=== PATIENT | female | born 1990 | race Caucasian/White ===

== ENCOUNTER → 2017-05-07 11:53 | Outpatient (CLI) | payer BC, SELFPAY ==
[2017-05-07 13:11] LABS: Vitamin B12 359 pg/mL (211-911)
[2017-05-07 13:13] LABS: BUN 8 mg/dL (7-18); EST Glomerular Filtration Rate 125 mL/min (>60); Est Glom Filt Rate - Afr Amer 151 mL/min (>60); Rheumatoid Factor < 10.0 IU/mL (<15); Thyroid Stim Hormone (TSH) 0.88 uIU/mL (0.358-3.74)
[2017-05-08 12:09] LABS: SJOGREN'S Anti-SS-A test < 0.2 AI (0.0-0.9); SJOGREN'S Anti-SS-B test < 0.2 AI (0.0-0.9)
[2017-05-08 12:50] LABS: ANTINUCLEAR ANTIBODIES DIRECT Negative (Negative)
[2017-05-08 16:11] LABS: Cytoplasmic Ab (C-ANCA) <1:20 titer (Neg:<1:20); PROEL- A/G Ratio 1.6 (0.7-1.7); PROEL- Albumin 4.4 g/dL (2.9-4.4); PROEL- Alpha-1 Globulin 0.2 g/dL (0.0-0.4); PROEL- Alpha-2 Globulin 0.7 g/dL (0.4-1.0); PROEL- Beta Globulin 0.8 g/dL (0.7-1.3); PROEL- Globulin, Total 2.7 g/dL (2.2-3.9); PROEL- TOTAL PROTEIN 7.1 g/dL (6.0-8.5); PROELU- Albumin, Urine 33.7 % (.); PROELU- Alpha-1-Globulin,Ur 10.7 % (.); PROELU- Alpha-2-Globulin,Ur 15.5 % (.); PROELU- Beta Globulin, Ur 25.2 % (.); PROELU- Gamma Globulin, Ur 14.9 % (.); Total Protein, Ur 5.4 mg/dL (Not Estab.)
[2017-05-09 07:17] LABS: Perinuclear Ab (P-ANCA) <1:20 titer (Neg:<1:20)
== END ==
PROVIDERS: Visit Provider Psychiatry & Neurology Neurology
DX: M79.604 Pain in right leg (principal); M62.81 Muscle weakness (generalized); R51 Headache; R20.0 Anesthesia of skin
CPT/HCPCS: 36415; 82565; 82607; 84165; 84166; 84443; 84520; 86038; 86235; 86256; 86335; 86431

== ENCOUNTER 2017-11-12 19:51 | Emergency (ER) | payer BC, SELFPAY ==
[2017-11-12 19:51] VITALS: BP 137/73; PULSE 75; RESP 16; TEMP 36.7; O2SAT 100; BMI 27.4
[2017-11-12 20:49] LABS: Bacteria 0 SEEN /hpf (None Seen); Color, Urine Yellow (Yellow); Glucose, Dipstick Normal (Normal); Ketone-Dipstick Negative (Negative); Leukocyte Esterase-Dipstick 25 /ul (Negative); Mucous, Urine 0 SEEN /hpf (<or=2+); Nitrite-Dipstick Negative (Negative); Occult Blood-Urine 250 /ul (Negative); Protein-Dipstick Negative (Negative); Squamous Epithelial Cells - UA 0 SEEN /hpf (5-10); Urine Bilirubin Dipstick Negative (Negative); Urine Clarity Clear (Clear); Urine Urobilinogen Normal (Normal)
[2017-11-12 20:56] LABS: Internal QC Validated? YES +Cl - CLEAR BKGD; Pregnancy, Urine Negative Negative; Red Blood Cells-Urine 0-5 SEEN /hpf (0-5); White Blood Cells 0-5 SEEN /hpf (0-5)
[2017-11-12 21:28] LABS: Anion Gap 4 (5-15); BUN 7 mg/dL (7-18); BUN/Creat Ratio 11.3 RATIO (10-20); Calcium,Total 8.8 mg/dL (8.5-10.1); Chloride 108 mmol/L (98-107); Creatinine, Serum 0.62 mg/dL (0.55-1.02); EST Glomerular Filtration Rate 121 mL/min (>60); Est Glom Filt Rate - Afr Amer 146 mL/min (>60); Estimated Creatinine Clearance 125.34 ml/min; Glucose 88 mg/dL (74-106); Potassium 3.8 mmol/L (3.5-5.1); Sodium Level 141 mmol/L (136-145)
--- NOTE | 2017-11-12 22:29 | ED.VISSUMM ---
- ER Visit Summary Date of Service: 11/12/17 Chief Complaint: Abdominal pain History of Present Illness: The patient is a [address] Tapia and Dr. Alcantara. She reports that she has left lower abdominal pain that began at noon today. Sick continuous waxing and waning pain. She describes it as a pressure that 7-10 severity. Is worsened by nothing relieved by nothing. She has had nausea without vomiting. Last bowel was yesterday. She has had no melena hematochezia. No dysuria or frequency. She reports that she has had similar pain in the past with an ectopic . States she has been approximately 8 times but is only had one child. She took a test today that was negative. Physical Examination: Vitals: Stable. Afebrile. General: Well-nourished and well-developed. Head: Normocephalic atraumatic. Neck: Supple, no lymphadenopathy. No JVD. Nontender. Cardiovascular: Regular rate and rhythm. No murmurs. Respiratory: No respiratory distress. Clear to auscultation bilaterally. Abdominal: Soft, mild tenderness palpation left lower quadrant and suprapubic regions, nondistended, normal bowel sounds. No guarding, rebound, or peritoneal signs. Back: Nontender. Extremities: Nontender, no edema. Skin: Normal color, no rash. Neurologic: Alert and oriented ?3. Cranial nerves II through XII are intact. Normal strength and sensation. Psych: Normal affect. Test Results: UA is negative. test is negative. Chem-7 is more for chloride 108. Emergency Department Course and Treatment: Patient is resting comfortably refused pain or nausea medications. Treatment Plan: Patient will be discharged instructed to follow-up her primary care physician in 1-2 days if not improving. Return to the emergency department for any worsening symptoms. Disposition: To home in improved and stable condition. Impression: 1. Abdominal pain, uncertain cause. This note was generated with Doculogy dictation software. It may contain incorrect words, spelling, and punctuation that were not noted in review of the chart prior to signing ED Disposition - Plan for ED Patient: Disposition: Home or Assisted Living Chief Complaint: Abd Pain Instructions: ED Abdominal Pain Unkn Cause Referrals: Doctor,Your [STAFF PHYSICIAN] - 1-2 Days if not improving
[2017-11-12 22:37] VITALS: BP 113/71; PULSE 59; RESP 16
== END 2017-11-12 22:37 | disposition home or self-care (01) ==
LOC: ED 20:57
PROVIDERS: Emergency Provider Emergency Medicine
DX: R10.9 Unspecified abdominal pain (principal); R51 Headache; R11.0 Nausea; D68.51 Activated protein C resistance; F17.200 Nicotine dependence, unspecified, uncomplicated
CPT/HCPCS: 80048; 81001; 81025; 99283; A4216

== ENCOUNTER → 2018-01-13 16:18 | Outpatient (CLI) | payer BC, SELFPAY ==
[2018-01-13 21:42] LABS: Chlamydia Trachomatis by PCR Negative (Negative); Neisserai gonorrhoeae by PCR Negative (Negative); Probe Check PASS; Sample Adequacy Control PASS; Specimen Processing Control PASS
[2018-01-16 15:45] LABS: HPV Reflexed? NOT INDICATED
== END ==
PROVIDERS: Visit Provider Obstetrics & Gynecology
DX: Z34.81 Encounter for supervision of other normal pregnancy, first trimester (principal); Z11.3 Encounter for screening for infections with a predominantly sexual mode of transmission; Z12.4 Encounter for screening for malignant neoplasm of cervix
CPT/HCPCS: 87491; 87591; 88175; G0145

== ENCOUNTER → 2018-02-10 15:46 | Outpatient (CLI) | payer BC, SELFPAY ==
[2018-02-10 18:06] LABS: Absolute Lymphocyte Count 2.72 X10^3/ul (0.83-4.51); Absolute Neutrophil Count 8.9 X10^3/uL (2.0-7.7); Basophil# 0.01 X10^3/uL; Basophil% 0.1 % (0-1); Eosinophil# 0.21 X10^3/uL; Eosinophils% 1.6 % (0-5); Hemoglobin 12.1 g/dl (12.0-15.0); Lymphocyte # 2.72 X10^3/ul (4.0); Lymphocyte % 20.6 % (19-41); Mean Corp Hgb Conc 33.6 g/gl (32-36); Mean Corpuscular Hgb 34.3 pg (27.0-32.0); Mean Platelet Vol. 10.6 fl (6.2-12.0); Monocyte# 1.26 X10^3/uL; Monocyte% 9.6 % (0-10); Neutrophil # 8.86 X10^3/uL (2.7-7.7); Neutrophil % 67.1 % (47-70); POSITIVE COUNT NO; POSITIVE DIFFERENTIAL NO; POSITIVE MORPHOLOGY NO; Platelet Count 205 K/mm3 (150-450); RBC Distribution Width CV 12.4 % (11.6-14.6); RBC Distribution Width SD 45.3 fl (35.1-43.9); Red Blood Count 3.53 M/mm3 (4.2-5.4); White Blood Count 13.2 K/mm3 (4.4-11.0)
[2018-02-10 18:17] LABS: Color, Urine Yellow (Yellow); Glucose, Dipstick Normal (Normal); Ketone-Dipstick 5 mg/dl (Negative); Leukocyte Esterase-Dipstick 100 /ul (Negative); Nitrite-Dipstick Negative (Negative); Occult Blood-Urine 10 /ul (Negative); Protein-Dipstick Negative (Negative); Specific Gravity, Urine 1.005 (1.002-1.030); Urine Bilirubin Dipstick Negative (Negative); Urine Clarity Clear (Clear); Urine Urobilinogen Normal (Normal)
[2018-02-10 18:35] LABS: Amphetamine Urine VISTA NEGATIVE (<1000 ng/mL); Barbiturate Urine VISTA NEGATIVE (< 200 ng/mL); Benzodiazepine Urine VISTA NEGATIVE (< 200 ng/mL); Cocaine Urine VISTA NEGATIVE (< 300 ng/mL); Ecstacy Urine VISTA NEGATIVE (< 500 ng/mL); Methadone Urine VISTA NEGATIVE (< 300 ng/mL); PCP Urine VISTA NEGATIVE (< 25 ng/mL); THC Urine VISTA NEGATIVE (< 50 ng/mL); Vista UDS pH Range 7
[2018-02-10 18:44] LABS: COTININE Drug Screen Positive (<200 ng/mL)
[2018-02-10 19:00] LABS: HIV - WCH Non-Reactive (Nonreactive)
[2018-02-12 08:17] LABS: HEPATITIS B SURFACE AG Negative (Negative)
[2018-02-12 08:18] LABS: Hep C Antibodies <0.1 s/co ratio (0.0-0.9); Toxoplasma Gondii IgG 99.7 IU/mL (0.0-7.1)
[2018-02-12 08:19] LABS: Toxoplasma Gondii IgM < 3.0 AU/mL (0.0-7.9)
[2018-02-13 01:35] LABS: Prenatal RPR NONREACTIVE (NONREACTIVE)
== END ==
PROVIDERS: Visit Provider Obstetrics & Gynecology
DX: Z34.81 Encounter for supervision of other normal pregnancy, first trimester (principal)
CPT/HCPCS: 36415; 80307; 81002; 84443; 85025; 86703; 86762; 86777; 86778; 86803; 87340

== ENCOUNTER → 2018-06-02 15:04 | Outpatient (CLI) | payer BC, SELFPAY ==
[2018-06-02 17:36] LABS: Hematocrit 33.8 % (37-47); Mean Corp Hgb Conc 32.5 g/gl (32-36); Mean Corpuscular Hgb 34.7 pg (27.0-32.0); Mean Corpuscular Volume 106.6 fL (81-99); Mean Platelet Vol. 10.7 fl (6.2-12.0); Platelet Count 195 K/mm3 (150-450); RBC Distribution Width CV 12.6 % (11.6-14.6); RBC Distribution Width SD 47.4 fl (35.1-43.9); Red Blood Count 3.17 M/mm3 (4.2-5.4); White Blood Count 14.7 K/mm3 (4.4-11.0)
[2018-06-02 17:37] LABS: Scan Indicated on CBC? Y/N NO
[2018-06-02 18:07] LABS: Glucose Challenge Gest 1H 50g 90 mg/dL (70-140)
== END ==
PROVIDERS: Visit Provider Obstetrics & Gynecology
DX: Z34.83 Encounter for supervision of other normal pregnancy, third trimester (principal)
CPT/HCPCS: 36415; 82950; 85027

== ENCOUNTER → 2018-06-24 14:19 | Outpatient (CLI) | payer BC, SELFPAY ==
--- NOTE | 2018-06-24 14:22 | US_ITS ---
STUDY: RENAL ULTRASOUND - COMPLETE REASON FOR EXAM: Female, 28 years old. Left renal cyst. 31 week . TECHNIQUE: Ultrasound evaluation of the kidneys was performed with real-time and static espinal-scale imaging. COMPARISON: None. FINDINGS: RIGHT KIDNEY: Normal location of the right kidney, which is enlarged in size. The right kidney measures 14.5 cm. There is a normal cortex of the right kidney. The renal cortex measures 1.5 cm. There is a septated cyst in the lower pole measuring 1.5 x 1.3 x 0.8 cm. There are no right renal calculi. There is also a low-attenuation area in the central sinus which may represent a complicated dilated collecting system versus soft tissue mass. DISTAL RIGHT URETER: There is non-visualization of the distal right ureter. There is no demonstrated right ureterovesical junction calculus. There is a visualized right ureteral jet. LEFT KIDNEY: Normal location of the left kidney, which is a large in size. The left kidney measures 13.6 cm. There is a normal cortex of the left kidney. The renal cortex measures 2.1 cm. There is no left renal mass or cyst. There is a complex mass in the lateral mid kidney measuring 4.6 x 3.8 x 3.9 cm. This has calcification in the wall with acoustic shadowing. This appears centrally within the larger low-attenuation mass measuring 8.7 x 6.5 x 6.4 cm. There is no left hydronephrosis. DISTAL LEFT URETER: There is non-visualization of the distal left ureter. There is no demonstrated left ureterovesical junction calculus. There is a visualized left ureteral jet. BLADDER: The distended urinary bladder has a volume of 211 ml. There is a normal wall thickness of the distended urinary bladder. There is no demonstrated mass within the urinary bladder. There are no demonstrated bladder calculi. Is evidence of an intrauterine in vertex presentation. US/Kidney and Bladder IMPRESSION: 1. Prominent left kidney. There is a large fluid hypoechoic mass containing a central cystic and calcified partially calcific mass. Etiology cannot be ascertained by ultrasound. Contrast CT is recommended, to further evaluate this finding. 2. There is a low attenuation area centrally within the right kidney. Mass versus complex fluid within the dilated collecting system. 3. Small septated cyst in lower pole of an enlarged right kidney. Electronically Signed: Cuba Morton DO at 15:19 EDT Tel [phone], Service support ,
== END ==
PROVIDERS: Family Provider Family Medicine; PCP Family Medicine; Referring Provider Family Medicine; Visit Provider Family Medicine
DX: N28.1 Cyst of kidney, acquired (principal)
CPT/HCPCS: 76770

== ENCOUNTER → 2018-07-30 16:19 | Outpatient (CLI) | payer BC, SELFPAY | PROVIDERS: Visit Provider Obstetrics & Gynecology | DX: Z36.85 Encounter for antenatal screening for Streptococcus B (principal) | CPT/HCPCS: 87081 ==

== ENCOUNTER 2018-08-31 06:53 | Inpatient (IN) | payer BC, SELFPAY ==
--- NOTE | 2018-08-31 07:02 | PCM.HPOB.BLA ---
History and Physical Date of Admission: 08/31/18 OB HISTORY AND PHYSICAL EXAMINATION History of this : 28 yo female Ab6 with EDC 08/24/2018 by 8 weeks 1 day Ultrasound, presents to Labor and Delivery for planned induction of labor at 41 wk EGA. care remarkable for 1.) DECLINES LARC, 2.) Plans surgical sterilization . R,B,A and permanent procedure. failure rate Sign paper at 28 -29 wks 3.) Declines MSAFP, 4.) Factor V Leiden heterozygote, Reports 4 early miscarriages, no D+Cs 5.) H/O two Ectopic pregnancies and s/p salpingectomy, and linear salpingostomy to treat 6.) Smoker A positive Rubella immune GBS NEGATIVE Pertinent Past Medical History: Ectopic pregnancies Smoker Allergies: No Known Drug Allergies Medications: During - Aspir-81 81 mg tablet,delayed release (DR/EC); 28 mg iron-800 mcg tablet; aspirin 81 mg tablet,delayed release; Prilosec OTC 20 mg tablet,delayed release Review of Systems: Non-contributory PHYSICAL EXAMINATION General Appearance: 28 yo female in no acute distress Vital Signs: AF, VSS Heart: RRR without rubs or gallops Lungs: CTA x 2 Breasts: deferred Abdomen: gravid Pelvis: Cervix: 3/40/-2 AROM. Moderate amt of clear fluid noted. Presentation: cephalic Station: Fetus: Size: AGA Movement: present Heart: 110-120s avg variability , accels. Irregular rare UCs. Impression /Plan: Intrauterine at 41 wk EGA . Planned induction of labor. Admit. Pitocin AROM. Anticipate . . See Progress Notes for Changes: Physician's Signature: Date:
[2018-08-31 07:36] VITALS: BMI 33.0
[2018-08-31 07:44] LABS: Absolute Lymphocyte Count 2.15 X10^3/ul (0.83-4.51); Absolute Neutrophil Count 12.2 X10^3/uL (2.0-7.7); Basophil# 0.02 X10^3/uL; Basophil% 0.1 % (0-1); Differential Indicated SCAN CRITERIA MET; Eosinophil# 0.08 X10^3/uL; Eosinophils% 0.5 % (0-5); Hematocrit 36.6 % (37-47); Hemoglobin 12.4 g/dl (12.0-15.0); Lymphocyte # 2.15 X10^3/ul (4.0); Lymphocyte % 12.9 % (19-41); Mean Corp Hgb Conc 33.9 g/gl (32-36); Mean Corpuscular Hgb 34.5 pg (27.0-32.0); Mean Corpuscular Volume 101.9 fL (81-99); Mean Platelet Vol. 10.7 fl (6.2-12.0); Monocyte# 2.07 X10^3/uL; Monocyte% 12.5 % (0-10); Neutrophil # 12.18 X10^3/uL (2.7-7.7); Neutrophil % 73.3 % (47-70); POSITIVE COUNT NO; POSITIVE DIFFERENTIAL YES; POSITIVE MORPHOLOGY NO; Platelet Count 154 K/mm3 (150-450); RBC Distribution Width CV 13.2 % (11.6-14.6); RBC Distribution Width SD 49.5 fl (35.1-43.9); Red Blood Count 3.59 M/mm3 (4.2-5.4); White Blood Count 16.6 K/mm3 (4.4-11.0)
[2018-08-31] MEDS: Oxytocin 30 units/NS 500 ml 30 UNITS/500 ML IV.SOLN IV (07:46)
[2018-08-31] MEDS: Lactated Ringers 1,000 ML 50 ML IV ×2 (07:46→10:11)
[2018-08-31] MEDS: fentaNYL-bupivacaine (epidural) 100 ML BAG EPIDURAL (10:18)
--- NOTE | 2018-08-31 12:43 | PCM.PN.BLA ---
Progress Note INDUCTION POSTDATES called by RN 2/2 approx 6 min deceleartion of FHT Intermittent EFM tracing. AVSS Pitocin OFF at present and pt in hands and knees EFM: 120s with accels. Category I tracing UCs difficult to trace in this position. CX: 8/100/0 A/P: Induction at 41 wk. postdates. Recheck cervix PRN. Anticipate .
[2018-08-31] MEDS: Oxytocin 30 units/NS 500 ml 30 UNITS/500 ML IV.SOLN 334 UNITS IV (13:07)
--- NOTE | 2018-08-31 13:13 | PCM.DCVAG ---
Discharge Diet: No Restrictions Discharge Activity: May Shower, May Take a Tub Bath Return to work on:: 10/12/18 May resume sexual activity in: 4-6 weeks Additional Activity Instructions:: Nothing in the vagina for 4-6 weeks. You may return to work/school in 6 weeks. Additional Instructions: If you experience any of the following, contact your healthcare provider. Bleeding that soaks a pad every hour for 2 hours Fever 100.4 or higher Unrelieved abdominal pain Problems urinating (including inability to urinate or burning while urinating). Visual changes Severe headache Flu-like symptoms Pain or redness in one of both of your breasts Pain, warmth, tenderness or swelling in your legs, especially the calf area Frequent nausea and vomiting Symptoms of depression or anxiety If you experience any of the following, call 911 or go to the nearest Emergency Room. Chest pain Problems breathing Seizure activity Partial or complete paralysis of a body part, slurred speech, weakness or drooping of the face, or a sudden inability to walk or hold your balance Allergies/Adverse Reactions: Allergies No Known Allergies Allergy (Verified 11/12/17 19:53) Medications to take at Discharge Pnv No.95/Ferrous Fum/Folic AC [ Formula] 1 each PO DAILY 08/31/18 Please Follow Up With: Mariann Tapia MD - [phone] When: Call to make an appointment with your doctor in 6 weeks. Test Results: Test results from this visit will be discussed in further detail at your follow-up appointment, if applicable. Proposed Discharge Date: 09/01/18
--- NOTE | 2018-08-31 13:14 | DCINST_ITS ---
Discharge Diet: No Restrictions Discharge Activity: May Shower, May Take a Tub Bath Return to work on:: 10/12/18 May resume sexual activity in: 4-6 weeks Additional Activity Instructions:: Nothing in the vagina for 4-6 weeks. You may return to work/school in 6 weeks. Additional Instructions: If you experience any of the following, contact your healthcare provider. * Bleeding that soaks a pad every hour for 2 hours * Fever 100.4 or higher * Unrelieved abdominal pain * Problems urinating (including inability to urinate or burning while urinating). * Visual changes * Severe headache * Flu-like symptoms * Pain or redness in one of both of your breasts * Pain, warmth, tenderness or swelling in your legs, especially the calf area * Frequent nausea and vomiting * Symptoms of depression or anxiety If you experience any of the following, call 911 or go to the nearest Emergency Room. * Chest pain * Problems breathing * Seizure activity * Partial or complete paralysis of a body part, slurred speech, weakness or drooping of the face, or a sudden inability to walk or hold your balance Allergies/Adverse Reactions: Allergies No Known Allergies Allergy (Verified 11/12/17 19:53) Medications to take at Discharge Pnv No.95/Ferrous Fum/Folic AC [ Formula] 1 each PO DAILY 08/31/18 Please Follow Up With: Mariann Tapia MD - [phone] When: Call to make an appointment with your doctor in 6 weeks. Test Results: Test results from this visit will be discussed in further detail at your follow- up appointment, if applicable. Proposed Discharge Date: 09/01/18
--- NOTE | 2018-08-31 13:14 | PCM.OPRPT ---
Vaginal Delivery Maternal Presentation: Medically Indicated Induction 41 wk induction Method of Induction: Pitocin, Amniotomy Amniotic Membrane Rupture Type: Artificial Amniotic Fluid Description: Clear Final WESLEY: 08/24/18 Gestational age: 41 Weeks and 1 Days Date of Procedure: 08/31/18 Pre-Operative Diagnosis: 41 wk induction Post-Operative Diagnosis: same Surgery/ Procedure Performed: Vacuum Assisted Vaginal Delivery - due to FHR deceleration. Type of Anesthesia: Epidural Description of Procedure: Vacuum assisted vaginal delivery 2/2 FHR decelerations with pushing. Kiwi vacuum in green zone with full cervical dilation +[address] resulted in delivery of female fetus over intact perineum to laceration. Ap 7/9 Cord around neck times one reduced at delivery. Laceration repaired under epidural to hemostatic and intact with 3-0 Vicryl no other lacerations noted. Placenta delivered by spont expulsion, expression. 3V cord, normal appearing, intact with trailing membranes. Ray Warren and needle counts correct times two Patient and infant tolerated delivery well. To recovery stable condition. Presentation: Vertex, DAVID Placental Delivery Description: Spontaneous, Expressed Placenta Disposition: [facility] Cord Vessel Description: 3 Vessels Nuchal Cord Compression: With compression Cord Entanglement: Around neck x 1, loose Drain: Gonzalez to straight drain Infant A gender: Female (1 minute): 7 (5 minute): 8 Episiotomy Description: None Laceration: Midline, Perineal Extension/lac, Vaginal Extension/lac, 2nd degree Medications given after delivery: IV Pitocin Complications: None
[2018-08-31] MEDS: Oxytocin 30 units/NS 500 ml 30 UNITS/500 ML IV.SOLN 167 UNITS IV (13:37)
[2018-08-31] MEDS: 0.9% Saline Lock 10 ML Syringe IV (14:44)
[2018-08-31 15:36] LABS: Pathologist Review Reviewed
[2018-08-31] MEDS: Acetaminophen 500 MG Tablet 1000 MG PO (19:56)
[2018-08-31] MEDS: Ibuprofen 600 MG Tablet PO (20:23)
[2018-08-31 20:26] VITALS: BP 118/70; PULSE 70; RESP 17; TEMP 36.9
[2018-09-01 00:45] VITALS: BP 110/64; PULSE 79; RESP 15; TEMP 36.7
[2018-09-01] MEDS: Ibuprofen 600 MG Tablet PO ×2 (02:19→13:10)
[2018-09-01 04:30] VITALS: BP 111/54; PULSE 67; RESP 18; TEMP 36.3
[2018-09-01] MEDS: Acetaminophen 500 MG Tablet 1000 MG PO (04:33)
[2018-09-01 04:54] LABS: Hemoglobin 11.6 g/dl (12.0-15.0); Mean Corp Hgb Conc 33.1 g/gl (32-36); Mean Corpuscular Hgb 34.2 pg (27.0-32.0); Mean Corpuscular Volume 103.2 fL (81-99); Mean Platelet Vol. 10.6 fl (6.2-12.0); Platelet Count 147 K/mm3 (150-450); RBC Distribution Width CV 12.9 % (11.6-14.6); RBC Distribution Width SD 47.6 fl (35.1-43.9); Red Blood Count 3.39 M/mm3 (4.2-5.4); Scan Indicated on CBC? Y/N NO; White Blood Count 17.2 K/mm3 (4.4-11.0)
--- NOTE | 2018-09-01 07:34 | PN.OBGYN_ITS ---
Subjective: PPD#1 Doing well. bottle feeding. Would like to go home later today if baby is released. No concerns other than cramping at lower abdomen. - Physical Exam General: Alert, Oriented x3, Cooperative, No apparent distress HEENT: Atraumatic Neck: Supple Abdomen: Soft - Fundus firm NT at inferior to umbilicus Neurological: Cranial nerves II-XII grossly intact Psych/Mental Status: Normal Affect Vital Signs Temp Pulse Resp BP 97.4 F L 67 18 111/54 L 09/01/18 04:30 09/01/18 04:30 09/01/18 04:30 09/01/18 04:30 Oxygen Delivery Method Room Air Weight: 92.986 kg Body Mass Index (BMI) 33.0 Intake and Output for Last 24 Hours 08/30/18 08/31/18 09/01/18 23:59 23:59 23:59 Intake Total 1647 / 1647 Output Total 1999 Balance -353 / -353 Laboratory Tests Past 24 Hrs 08/31/18 08/31/18 09/01/18 07:25 07:25 04:41 WBC 16.6 H 17.2 H RBC 3.59 L 3.39 L Hgb 12.4 11.6 L Hct 36.6 L 35.0 L MCV 101.9 H 103.2 H MCH 34.5 H 34.2 H MCHC 33.9 33.1 RDW 13.2 12.9 RDW Differential 49.5 H 47.6 H Plt Count 154 147 L MPV 10.7 10.6 Immature Gran % (Auto) 0.700 Neut % (Auto) 73.3 H Lymph % (Auto) 12.9 L Hawkins % (Auto) 12.5 H Eos % (Auto) 0.5 Baso % (Auto) 0.1 Absolute Neuts (auto) 12.2 H Absolute Lymphs (auto) 2.15 Total Counted Not Reportable Differential Comment COMMENT Diff Path Review Reviewed Blood Type A POSITIVE Antibody Screen NEGATIVE Medical Necessity - Tobacco Use Smoking Status: Current every day smoker Assessment/Plan PPD#1 Vaginal delivery Stable pp. Dischg home today. RTO in 6 wk for pp check, prn sooner.
[2018-09-01 08:00] VITALS: BP 105/56; PULSE 84; RESP 16; TEMP 37
[2018-09-01 13:05] VITALS: BP 125/72; PULSE 70; RESP 16; TEMP 36.9
[2018-09-01 17:25] VITALS: BP 128/78; PULSE 90; RESP 18; TEMP 37.1
== END 2018-09-01 17:25 | disposition home or self-care (01) | DRG 806 ==
PROVIDERS: Admitting Provider Obstetrics & Gynecology; Referring Provider Obstetrics & Gynecology; Visit Provider Obstetrics & Gynecology
DX: O76 Abnormality in fetal heart rate and rhythm complicating labor and delivery (principal); D68.51 Activated protein C resistance; Z37.0 Single live birth; O99.12 Other diseases of the blood and blood-forming organs and certain disorders involving the immune mechanism complicating childbirth; Z3A.41 41 weeks gestation of pregnancy; O48.0 Post-term pregnancy; F17.200 Nicotine dependence, unspecified, uncomplicated; O99.334 Smoking (tobacco) complicating childbirth; O69.1XX0 Labor and delivery complicated by cord around neck, with compression, not applicable or unspecified; O70.1 Second degree perineal laceration during delivery
CPT/HCPCS: 59050; 85025; 85027; 86850; 86900; 99218; J7120; A4216; G0378

== ENCOUNTER 2018-10-08 10:16 | Day surgery (SDC) | payer BC, SELFPAY ==
--- NOTE | 2018-10-07 22:57 | PCM.HPOB.BLA ---
History and Physical Date of Admission: 10/08/18 10/05/2018 Name: JO CAR Age: 28 Date of : 1990 Preoperative History and Physical Jo is a 28 yr old female who presents for preop appt for planned laparoscopic salpingectomy. Planned surgery for 10-08-18. Consents signed and information reviewed for surgery. Medications and allergies are up to date. AM As above. Jo is here for pp check up and for preop appt for Laparoscopic salpingectomy. Sterilization request, no further childbearing desired. Surgery scheduled for 10/08/18. She has only one fallopian tube due to prior partial right salpingectomy for ectopic . Reviewed anticipated preop, operative and postop recovery. ALLERGIES: NKDA MEDICATIONS HISTORY: Current medications prescribed by our practice are: 1. none. Patient is also takin. No Meds REVIEW OF SYSTEMS: GENERAL - Denies fever, or chills SKIN - Denies skin changes EYES - Denies visual changes EARS - Denies difficulty hearing NOSE - Denies nasal congestion or bleeding MOUTH - Denies sore throat or difficulty swallowing NECK - Denies pain or swelling RESPIRATORY - Denies shortness of breath or wheezing CARDIOVASCULAR - Denies palpitations or chest pain GASTROINTESTINAL - Denies nausea, vomiting, diarrhea, constipation GENITOURINARY - Denies dysuria, frequency of urination, incontinence of urine MUSCULOSKELETAL - Denies joint or muscle pain NEUROLOGICAL - Denies localized numbness or weakness PSYCHIATRIC - Denies depression or anxiety ENDOCRINE - Denies heat or cold intolerance, weight loss or gain HEMATO-IMMUNOLOGIC - Denies excessive bleeding with cuts SURGICAL HISTORY: 1. 09/25/2013 Laparoscopy for removal of ectopic from left adnexa Mariann Tapia M.D. 2. 04/16/2010 Diagnostic Laparoscopy, Right partial salpingectomy & ectopic removal, drainage of L ovarian cyst Saad Moses M.D. Right Ectopic , L ovarian cyst 3. Bilateral Tubes in Ears [address] Mosquera MENSTRUAL HISTORY: LMP Known?- Approximate-Month Known, Regularity - Regular, LMP - 11/18/17, Age Onset Menarche - 13 PAST PREGNANCIES: Total Pregnancies - 8; Full Term Pregnancies - 2; Premature - 0; Abortions, Induced - 0; Abortions, Spontaneous - 4; Ectopics - 2; Multiple Births - 0; Living Children - 2 FAMILY HISTORY: Mother - Type 2 Diabetes; Mother - Unknown Disease; Sister - Depression; Cousin - kidney disease; Maternal Grandparent - FH: Neoplasm of lung; Maternal Grandparent - Family history unknown; Paternal Grandparent - FH: Malignant neoplasm of liver; SOCIAL HISTORY: Alcohol Use - RARELY not while Smoking - smoker x 12 y. Currently down to 6 daily. Trying to quit. Diet - caffeine > 2 drinks per day, needs improvement and Drinks 6-7 cans Pepsi. Poor water drinker. Lifestyle - filing for bankruptcy, custody davis for [place]'s 10 yo daughter, recent marriage. Exercise - Active at home with 3 yo. Enc to walk 20 min daily. Seat Belt Use - always Employer - [employer] Job Description - [employer] Illicit Drug Use - denies use of street drugs Sexual Activity - Residence - owns a home and lives with Place of - [place], [place] Hours Worked - 48+ Spouse-Sig Other Name - Nico Car Spouse-Sig Other Occupation - [employer] Spouse-Sig Other Phone No - [phone] Children Name(s) - Shila Murcia ('19) Control - Tubal 10-08-18 PHYSICAL EXAMINATION BP- 108/88 Sitting, Right arm, regular cuff Temp- 98.2 Taken Orally Weight- 184.40 lbs Height- 66.00 inch BMI:29.83 CONSTITUTIONAL - NAD, well nourished, and well developed HEENT - Normocephalic, atraumatic, sclerae anicteric. EOMI. NECK - no nuchal rigidity LUNGS - normal respiratory rate and rhythm CARDIAC - normal s1, normal s2, no s3 EXTREMITIES - no edema NEUROLOGICAL - Cranial nerves II-XII grossly intact PSYCHIATRIC - A and O to time, place, person, mood and affect ASSESSMENT: 1. Other Specified Counseling 2. Sterilization request PLAN BY DIAGNOSIS: 1. Other Specified Counseling; sterilization request Sterilization request. No further childbearing desired Plans laparoscopic bilateral salpingectomy R,B,A reviewed . Discussed anticipated preop, operative and postop recovery including activity restrictions. All questions answered to her satisfaction. Consents signed and on chart. Plan for Laparoscopic salpingectomy as scheduled. RTO for postop follow up appt.
[2018-10-08] VITALS (8 sets, daily range): BP systolic 106–121; BP diastolic 66–75; PULSE 46–64; RESP 14–16; TEMP 36.4–36.7; O2SAT 95–100; BMI 29.7
[2018-10-08 10:39] LABS: Internal QC Validated? YES +Cl - CLEAR BKGD; Pregnancy, Urine Negative Negative
--- NOTE | 2018-10-08 12:00 | FALS_PTH ---
PATIENT: THELMA INFANTE LOC: [facility] [place] U#:[id number] AGE/SX: 28/F ROOM: RE10/08/[address]: Dr. Mariann Tapia MD : 1990 BED: DIS: 10/08/2018 SPEC #: [id number] RECD: 10/08/18 16:46 STATUS: GEOVANNI JETHRO #: [id number] CONCEPCION: 10/08/18 12:[address]: Mariann Tapia DEPT: SURGICAL PATHOLOGY RECD BY: Ramon Trejo ENTERED: 10/09/18 11:39 SP TYPE: FALL TUBES OTHR DR: Dr. Saad Mcnair MD Tissues: Fallopian tube Procedures: Surgery Specimen Level II HEADER OPERATION: Laparoscopic left salpingectomy PRE-OP DIAGNOSIS: Sterilization request TISSUE SUBMITTED: Left fallopian tube MICROSCOPIC DIAGNOSIS Left fallopian tube, salpingectomy: Fallopian tube including fimbrial end, no pathologic diagnosis. SJ:romario 10/12/18 MICROSCOPIC DESCRIPTION Slides are reviewed. GROSS DESCRIPTION Received in fixative is one container labeled with the patient's name and designated left fallopian tube. The specimen consists of a fallopian tube measuring 4.5 cm in length and 0.6 cm in diameter. The fimbrial end is identified. Sections reveal unremarkable cut surfaces. Iron Handler sections are submitted in one cassette. / BINDU:romario 10/09/18 TC:4 CPT: 01351
--- NOTE | 2018-10-08 12:06 | DCINST_ITS ---
Discharge Diet: No Restrictions Discharge Activity: May not drive while taking narcotic pain medications., May Shower, May Take a Tub Bath May resume sexual activity in: 1-2 weeks - when comfortable Weight Bearing Status: Weight bearing as tolerated Additional Activity Instructions:: Ambulate often the next week after surgery. Nothing in the vagina for 5 days. Call your doctor if you observe: Fever of 101 or Higher, Inability to have a bowel movement, Uncontrolled pain Allergies/Adverse Reactions: Allergies No Known Allergies Allergy (Verified 10/07/18 14:48) Medications to take at Discharge Oxycodone [Oxyir] 5 mg PO Q6H PRN PRN 3 Days #10 tablet 10/08/18 The following prescriptions were given: Oxycodone [Oxyir] 5 mg PO Q6H PRN PRN 3 Days #10 tablet PRN Reason: Mod-Severe Pain (-01/07) Transmission Status: Received by [id number] Primary Care Physician: Saad Mcnair [Primary Care Provider] - Test Results: Test results from this visit will be discussed in further detail at your follow- up appointment, if applicable. Please Follow Up With: Mariann Tapia MD - [phone] When: as scheduled in office for postoperative incision check. Proposed Discharge Date: 10/08/18
[2018-10-08] MEDS: Bupiv/Epi 0.25% 30 ML Vial (12:40)
--- NOTE | 2018-10-08 12:53 | OP.PCM_ITS ---
Report of Operation Date of Procedure: 10/08/18 Pre-Operative Diagnosis: sterilization request. Prior R salpingectomy for ectopic. Planned L/S L salpingectomy Post-Operative Diagnosis: Same Surgery/Procedure Performed:: Laparoscopic Left salpingectomy Description of Surgical Findings:: Findings: There is a normal-appearing uterus. Left fallopian tube and ovaries are within normal limits. The Right fallopian tube was surgically absent. No adhesions were noted in the pelvis. Gross inspection of the bowel, omentum, liver edge are also within normal limits. Photos were taken of the uterus and ovaries after the salpingectomy, and of the right upper quadrant/liver edge. it infrastructure project manager: Elinor Rhodes Type of Anesthesia:: General Anesthesiologist: Rodo Greene CRNA Specimen's removed: L fallopian tube Drains: Will Barrow Estimated Blood Loss (mL): 20 Fluids Replaced: LR Description of Procedure: Narrative account: After the risks, benefits, alternatives of the procedure have been reviewed with the patient, informed consent was obtained. The patient was taken to the operating room with an IV running. She was positioned on the operating table in dorsal supine position, where she was given general anesthesia. Once asleep she was repositioned into the dorsal lithotomy position and prepped and draped in the usual sterile fashion. A red Barrow catheter was used to drain the bladder prior to initiating the case. A sponge stick was placed into the vagina to allow manipulation of the cervix and uterus during the case. Attention was then turned to the anterior abdominal wall where 0.5% percent Ma rcaine with epinephrine was instilled at the suprapubic and infraumbilical skin and at a point midway between the two, in the midline. Skin incisions were then created in the midline at the suprapubic skin, at the infraumbilical skin, and at a point in the midline midway between the two. While maintaining upward traction of the anterior abdominal wall, a Veress needle was inserted through the umbilical incision into the peritoneal cavity. There was free drop of saline, low opening pressure and free flow of CO2 noted. Once the intra- abdominal pressure had reached 12 mmHg the Veress needle was removed and a bladeless 5 mm trocar was inserted through the infraumbilical skin incision into the peritoneal cavity. Correct placement was confirmed using the scope. Under direct visualization then with the patient in Trendelenburg position, a bladeless 5 mm trocar was inserted in through the suprapubic skin incision into the peritoneal cavity and at the midlower abdominal incision midway between the infraumbilical and suprapubic trocars. The uterus was anteverted and both ovaries and the left fallopian tube were within normal limits. The Right fallopian tube was surgically absent. there were no adhesions noted in the pelvis. The Left fallopian tube was grasped and retracted medially and using a EnSeal device the Left fallopian tube was excised from the ovary and mesosalp inx to the level of the uterine fundus. Excellent hemostasis was noted at the excision site. The Left fallopian tube was brought through the suprapubic trocar and set aside for later pathology review. The fallopian tube was sent to pathology. Excellent hemostasis was noted by visualization of the pelvis, ovaries, and remaining mesosalpinx. Photos were taken of the uterus and bilateral remaining ovaries and of the right upper quadrant and liver edge. At this point the procedure was terminated. The pneumoperitoneum was reduced and the instruments and trocars were removed from the anterior abdominal wall skin. The skin incisions were closed with 4-0 Monocryl in a subcuticular fashion Dermabond and op sites were applied to the skin. The single-toothed tenaculum and Vandana cannula were then removed from the vagina. The patient was returned to dorsal supine position. She was awakened from general anesthesia. She was transferred to the recovery room bed in stable condition after tolerating the procedure well. Sponge, lap, needle and instrument counts were correct x two. Medications given preop and intra-op included: 10 cc of half percent Marcaine with epinephrine used as a subcutaneous block, and Toradol 30 mg IV x1. For a complete listing of medications given preop and intra-op please see the anesthesia record. - Complications none - Admit VTE Documentation VTE Present on Admission: No VTE Mechan Device Prophylaxis: SCD's VTE Pharm Prophylaxis ordered?: No
== END 2018-10-08 15:10 | disposition home or self-care (01) ==
LOC: SDC 10:17 → AC 10:19
PROVIDERS: Family Provider Family Medicine; PCP Family Medicine; Referring Provider Obstetrics & Gynecology; Visit Provider Obstetrics & Gynecology
PROC: (CPT 58661; principal; 2018-10-08 11:45)
DX: Z30.2 Encounter for sterilization (principal); K21.9 Gastro-esophageal reflux disease without esophagitis
CPT/HCPCS: 00840; 58661; 81025; 88302; J7120; C1760; J2405

== ENCOUNTER → 2025-03-16 | Outpatient (CLI) | payer BC, SELFPAY ==
[2025-03-22 13:08] LABS: HPV APTIMA, High Risk Negative (Negative)
== END | disposition home or self-care (01) ==
LOC: LABSPEC 15:33
PROVIDERS: PCP Family Medicine; Referring Provider Nurse Practitioner Family; Visit Provider Nurse Practitioner Family
DX: Z12.4 Encounter for screening for malignant neoplasm of cervix (principal)
CPT/HCPCS: 87624; 88175; G0145